=== PATIENT | male | born 1955 | race Caucasian/White ===

== ENCOUNTER → 2018-02-23 10:33 | Outpatient (CLI) | payer OTHER, SELFPAY ==
--- NOTE | 2018-02-23 10:38 | XR_ITS ---
XR shoulder RT min 2V HISTORY: ITS.REASON: right shoulder pain ORDERING PHYSICIAN: Cedrick Vaughn MD PATIENT AGE: 62 years Comparison: None FINDINGS: There are mild hypertrophic changes of the acromioclavicular joint. No fracture or dislocation evident. Mild subacromial stenosis. IMPRESSION: Acromioclavicular arthropathy with mild subacromial stenosis
== END ==
PROVIDERS: PCP Family Medicine; Visit Provider Orthopaedic Surgery
DX: M25.511 Pain in right shoulder (principal)
CPT/HCPCS: 73030